=== PATIENT | female | born 1985 | race Caucasian/White ===

== ENCOUNTER 2018-01-05 03:25 | Emergency (ER) | payer OTHER ==
[~2018-01-05] VITALS: Ht 157.5 cm; Wt 65.6 kg
[~2018-01-05 03:25] MED LIST: PRENTAB26 PO
[2018-01-05 03:29] VITALS: Ht 157.5 cm; Wt 65.6 kg
[2018-01-05] MEDS ORDERED: ONDANSETRON INJ 2 MG/ML 2 ML VIAL IV STA (03:48)
[2018-01-05] MEDS ORDERED: SODIUM CHLORIDE 0.9% 1000ML 1,000 ML IV STA (03:48)
[2018-01-05 04:14] LABS: BASO % 0.2 %; BASO ABS # 0.01 K/uL (0-0.2); EOS % 1.1 %; EOS ABS # 0.07 K/uL (0-0.5); HEMATOCRIT 40.6 % (37-47); IG# 0.01 K/uL (0.00-0.02); LYMPH % 35.3 %; LYMPH ABS # 2.35 K/uL (1.2-3.4); MEAN CELL VOLUME 85.5 fL (80-100); MEAN CORPUSCULAR HEMOGLOBIN 29.5 pg (25-34); MEAN CORPUSCULAR HGB CONC 34.5 g/dl (32-36); MEAN PLATELET VOLUME 9.9 fL (7.4-10.4); MONO ABS # 0.73 K/uL (0.11-0.59); NEUT % 52.2 %; NEUT ABS # 3.49 K/uL (1.4-6.5); PLATELET COUNT 245 K/uL (130-400); RED CELL DISTRIBUTION WIDTH CV 12.5 % (11.5-14.5); RED CELL DISTRIBUTION WIDTH SD 39.1 fL (36.4-46.3); WHITE BLOOD COUNT 6.66 K/uL (4.8-10.8)
[2018-01-05 04:38] LABS: ALBUMIN 4.1 gm/dl (3.4-5.0); CALCIUM 9.7 mg/dl (8.5-10.1); CREATININE 0.68 mg/dl (0.60-1.20); POTASSIUM 3.5 mmol/L (3.5-5.1); TOTAL PROTEIN 8.3 gm/dl (6.4-8.2)
--- NOTE | 2018-01-05 04:48 | EMERGENCY ROOM VISIT NOTE ---
History First contact with patient: 03:35 Chief Complaint: ABDOMINAL PAIN Stated Complaint: STOMACH PAIN,BLOATING,FULLNESS Nursing Triage Summary: bloating abdominal fullness and heart burn since 1500 yesterday History of Present Illness The patient is a 32 year old female who presents to the Emergency Room with complaints of abdominal pain and bloating. The patient states that she feels very full and bloated. She has some abdominal pain and pressure in her upper abdomen. She rates the discomfort only a 3/10. She states the symptoms are worse when she is lying down. The symptoms started approximately 12 hours ago. She has been nauseous and has vomited 3-4 times. The patient does state that she was constipated earlier in the week and has been taking laxatives which have worked. She reports eating chicken soup for her symptoms started. She denies urinary symptoms, fevers or abnormal vaginal discharge. Her last menstrual period was at the beginning of the month and her periods are regular. She denies any history of similar symptoms. She denies any history of abdominal surgeries or issues. Review of Systems A complete 10 point review of systems was reviewed with the patient with pertinent positives and negatives as per history of present illness. All else were negative. Past Medical/Surgical History Medical Problems: (1) No significant active problems Social History Smoking Status: Current Every Day Smoker Alcohol Use: occasionally Marital Status: Housing Status: lives with family Current/Historical Medications Scheduled Ondasetron Odt (Zofran Odt), 4 MG SL Q6H Physical Exam Vital Signs Date Time Temp Pulse Resp B/P (MAP) Pulse Ox O2 Delivery O2 Flow Rate FiO2 01/05/18 06:31 36.9 70 18 156/100 99 Room Air 01/05/18 04:36 65 16 187/106 99 Room Air 01/05/18 03:29 36.9 65 16 177/95 99 Room Air Physical Exam VITALS: Vitals are noted on the nurse's note and reviewed by myself. Vital signs stable. GENERAL: This is a 32-year-old female, in no acute distress, nondiaphoretic, well-developed well-nourished. SKIN: The skin was without rashes. EARS: External auditory canals clear, tympanic membranes pearly jhaveri without erythema or effusion bilaterally. EYES: Pupils equal round and reactive to light and accommodation. MOUTH: Mucous membranes moist. Tonsils are not enlarged. Pharynx without erythema or exudate. HEART: Regular rate and rhythm without murmurs gallops or rubs. LUNGS: Clear to auscultation bilaterally without wheezes, rales or rhonchi. ABDOMEN: Positive bowel sounds x 4. Soft, nondistended. There is tenderness to palpation in the epigastric region and right upper quadrant. No guarding or rebound tenderness. NEURO: Patient was alert and oriented to person place and time. Medical Decision & Procedures ER Provider Diagnostic Interpretation: US GALLBLADDER: PANC-within normal limits LIVER- 14.9 cm GB- wall 0.2 cm. No stones seen. Negative brasher's CBD- 0.2 cm RK- 11.1 cm. No hydro. Overall, no significant abnormalities. Laboratory Results 01/05/18 04:03 Red Blood Count 4.75, Mean Corpuscular Volume 85.5, Mean Corpuscular Hemoglobin 29.5, Mean Corpuscular Hemoglobin Concent 34.5, Mean Platelet Volume 9.9, Neutrophils (%) (Auto) 52.2, Lymphocytes (%) (Auto) 35.3, Monocytes (%) (Auto) 11.0, Eosinophils (%) (Auto) 1.1, Basophils (%) (Auto) 0.2, Neutrophils # (Auto ) 3.49, Lymphocytes # (Auto) 2.35, Monocytes # (Auto) 0.73, Eosinophils # (Auto ) 0.07, Basophils # (Auto) 0.01 01/05/18 04:03 Test 01/05/18 04:03 White Blood Count 6.66 K/uL (4.8-10.8) Red Blood Count 4.75 M/uL (4.2-5.4) Hemoglobin 14.0 g/dL (12.0-16.0) Hematocrit 40.6 % (37-47) Mean Corpuscular Volume 85.5 fL (80-100) Mean Corpuscular Hemoglobin 29.5 pg (25-34) Mean Corpuscular Hemoglobin Concent 34.5 g/dl (32-36) Platelet Count 245 K/uL (130-400) Mean Platelet Volume 9.9 fL (7.4-10.4) Neutrophils (%) (Auto) 52.2 % Lymphocytes (%) (Auto) 35.3 % Monocytes (%) (Auto) 11.0 % Eosinophils (%) (Auto) 1.1 % Basophils (%) (Auto) 0.2 % Neutrophils # (Auto) 3.49 K/uL (1.4-6.5) Lymphocytes # (Auto) 2.35 K/uL (1.2-3.4) Monocytes # (Auto) 0.73 K/uL (0.11-0.59) Eosinophils # (Auto) 0.07 K/uL (0-0.5) Basophils # (Auto) 0.01 K/uL (0-0.2) RDW Standard Deviation 39.1 fL (36.4-46.3) RDW Coefficient of Variation 12.5 % (11.5-14.5) Immature Granulocyte % (Auto) 0.2 % Immature Granulocyte # (Auto) 0.01 K/uL (0.00-0.02) Urine Color YELLOW Urine Appearance CLEAR (CLEAR) Urine pH 5.5 (4.5-7.5) Urine Specific [place] 1.022 (1.000-1.030) Urine Protein NEG (NEG) Urine Glucose (UA) NEG (NEG) Urine Ketones TRACE (NEG) Urine Occult Blood NEG (NEG) Urine Nitrite NEG (NEG) Urine Bilirubin NEG (NEG) Urine Urobilinogen NEG (NEG) Urine Leukocyte Esterase SMALL (NEG) Urine WBC (Auto) 5-10 /hpf (0-5) Urine RBC (Auto) 0-4 /hpf (0-4) Urine Hyaline Casts (Auto) 1-5 /lpf (0-5) Urine Epithelial Cells (Auto) >30 /lpf (0-5) Urine Bacteria (Auto) NEG (NEG) Urine Test NEG (NEG) Anion Gap 10.0 mmol/L (3-11) Est Creatinine Clear Calc Drug Dose 107.5 ml/min Estimated GFR () 136.0 Estimated GFR (Non- 117.4 BUN/Creatinine Ratio 20.5 (10-20) Calcium Level 9.7 mg/dl (8.5-10.1) Total Bilirubin 1.1 mg/dl (0.2-1) Direct Bilirubin 0.3 mg/dl (0-0.2) Aspartate Amino Transf (AST/SGOT) 13 U/L (15-37) Alanine Aminotransferase (ALT/SGPT) 22 U/L (12-78) Alkaline Phosphatase 52 U/L (45-117) Total Protein 8.3 gm/dl (6.4-8.2) Albumin 4.1 gm/dl (3.4-5.0) Lipase 117 U/L (73-393) Medications Administered Medications (Trade) Dose Ordered Sig/Justin Route Start Time Stop Time Status Last Admin Dose Admin Sodium Chloride 1,000 ml @ 999 mls/hr Q1H1M STAT IV 01/05/18 03:48 01/05/18 04:48 DC 01/05/18 03:56 999 MLS/HR Ondansetron HCl (Zofran Inj) 4 mg NOW STAT IV 01/05/18 03:48 01/05/18 03:49 DC 01/05/18 03:55 4 MG Medical Decision Differential diagnosis includes cholecystitis, choledocholithiasis, gastritis, GERD, bowel obstruction, among others. The patient is a 32-year-old female who presents today complaining of abdominal discomfort and bloating. Labs revealed no leukocytosis, anemia or concerning electrolyte abnormalities. LFTs are within normal limits. Patient was tender in the epigastrium and right upper quadrant and so ultrasound of the gallbladder was performed. This was read by [facility] and shows no acute findings. Patient did take a laxative earlier this week which may be contributing to her symptoms. This also could be due to a Viral gastroenteritis. Patient was offered different options of care including observation versus further imaging with CT scanning. Shared decision making was utilized and patient prefers to be discharged home at this time. She agrees to return if her symptoms worsen in any way. Of note, patient's blood pressure was elevated throughout her stay. She states that she is very anxious at baseline and believes this is why her blood pressure was elevated. She agrees to have this rechecked by her PCP. The patient's case was reviewed with Dr. Joseph, ED attending physician, who agreed with my assessment and treatment plan. Based on the patient's presentation and work up, I feel the patient is stable for outpatient treatment. The patient was educated to return to the emergency department for any worsening of their current condition or new/concerning symptoms. She will follow up with her PCP. Blood Pressure Screening Patient's blood pressure: Elevated blood pressure Blood pressure disposition: Elevated BP felt to be situational, Referred to PCP Impression Primary Impression: Abdominal bloating Additional Impression: Epigastric abdominal pain Departure Information Dispostion Home / Self-Care Condition GOOD Prescriptions Ondasetron Odt (ZOFRAN ODT) 4 Mg Tab 4 MG SL Q6H for Nausea, #16 TAB Prov: Zoila Astorga .RUDY 01/05/18 Referrals No Doctor, Assigned (PCP) Patient Instructions My [facility] Additional Instructions You have been treated in the Emergency Department for your Abdominal Pain. Laboratory results and imaging studies have ruled out any emergent causes for your abdominal pain which would warrant admission or surgery. You have been prescribed Zofran to be used for any nausea or vomiting. Take as prescribed. For pain control, you can use the following [id number] medicines (if >12 yo): - Regular strength (325mg/tab) Tylenol (acetaminophen) 2 tabs every 4-6 hours as needed. Do not exceed 12 tablets in a 24 hour period. Avoid taking more than 4 grams (4000 mg) of Tylenol per day. This includes any other sources of acetaminophen you may take on a regular basis. - Regular strength (200 mg/tab) Advil (ibuprofen) 1-2 tabs every 4-6 hours as needed. Do not exceed a dose of 3200 mg per day. Drink plenty of water and stay well hydrated. Keep a bland, clear liquid diet for the next 24-48 hours including water, Gatorade and broth. As with any trip to the Emergency Department, you should follow-up with your Primary Care Provider from today's visit. Return to the emergency department if your symptoms persist despite treatment plan outlined above or if the following symptoms occur: Worsening abdominal pain , worsening vomiting, fevers or other new/concerning symptoms. Problem Qualifiers
--- NOTE | 2018-01-05 06:20 | DIAGNOSTIC IMAGING REPORT ---
GALLBLADDER-ABD LIMITED CLINICAL HISTORY: epigastric/ruq pain, bloating, n/v pain. Nausea. TECHNIQUE: Ultrasound COMPARISON STUDY: None FINDINGS: Normal gallbladder. Common bile duct 2 mm. Liver pancreas and right kidney are unremarkable. IMPRESSION: Normal study The above report was generated using voice recognition software. It may contain grammatical, syntax or spelling errors. Electronically signed by: Crow Lo M.D. 01/05/2018 6:19 AM Dictated Date/Time: 01/05/2018 6:18 AM
[2018-01-05] MEDS ORDERED: ONDA4TAB10 SL (06:21)
[2018-01-05 06:31] VITALS: BP 156/100; PULSE 70; TEMP 36.9; O2SAT 99
== END 2018-01-05 06:32 | disposition home or self-care (01) ==
LOC: C.EDB 03:27
DX: R10.13 Epigastric pain (principal); R10.11 Right upper quadrant pain; R14.0 Abdominal distension (gaseous); R03.0 Elevated blood-pressure reading, without diagnosis of hypertension; F17.200 Nicotine dependence, unspecified, uncomplicated